=== PATIENT | female | born 1975 | race Caucasian/White ===

== ENCOUNTER → 2017-07-23 | Outpatient (CLI) | payer MEDICAID ==
[~2017-07-23] MED LIST: FLUTI110I INH; PREN1TAB20 PO; PRENCAP35 PO; VENTAER INH; ZANT150T2 PO; ZOFR8TAB PO; [UNRECOGNIZED DRUG - CODE] TOPICAL
== END ==
LOC: HPND 12:23
PROVIDERS: ATTEND Obstetrics & Gynecology
DX: O09.529 Supervision of elderly multigravida, unspecified trimester (principal); O34.219 Maternal care for unspecified type scar from previous cesarean delivery; O99.210 Obesity complicating pregnancy, unspecified trimester; E66.9 Obesity, unspecified
CPT/HCPCS: 76811

== ENCOUNTER → 2017-08-20 | Outpatient (CLI) | payer MEDICAID | LOC: HPND 12:51 | PROVIDERS: ATTEND Obstetrics & Gynecology | DX: O09.522 Supervision of elderly multigravida, second trimester (principal); O44.02 Complete placenta previa NOS or without hemorrhage, second trimester; O34.212 Maternal care for vertical scar from previous cesarean delivery | CPT/HCPCS: 76816 ==

== ENCOUNTER → 2017-09-18 | Outpatient (CLI) | payer MEDICAID | LOC: HPND 14:50 | PROVIDERS: ATTEND Obstetrics & Gynecology | DX: O09.522 Supervision of elderly multigravida, second trimester (principal); O44.02 Complete placenta previa NOS or without hemorrhage, second trimester | CPT/HCPCS: 76816 ==

== ENCOUNTER → 2017-10-16 | Outpatient (CLI) | payer MEDICAID ==
[~2017-10-16] MED LIST changes: +ALBUAER3 INH; +PRENMIS9 PO
== END ==
LOC: HPND 13:24
PROVIDERS: ATTEND Obstetrics & Gynecology
DX: O44.02 Complete placenta previa NOS or without hemorrhage, second trimester (principal); O09.522 Supervision of elderly multigravida, second trimester
CPT/HCPCS: 76816

== ENCOUNTER → 2017-11-14 | Outpatient (CLI) | payer MEDICAID ==
[~2017-11-14] MED LIST changes: +BETAMETHASONE SOD PHOS/ACETATE SUSP 30 MG/5 ML VIAL IM ONE; +DILA2TAB4 PO; +DIPH1GEL TOPICAL; +FERR325T18 PO; +IBUP-232 PO; +OXYC1TAB63 PO; +PERI PO; -PREN1TAB20 PO; -VENTAER INH
--- NOTE | 2017-11-14 18:48 | HHI.PR ---
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 She presents today for consultation. No LOF, VB, ctx. +FM. She has PNC at [facility]. is complicated by: -- AMA -- h/o CSx2 -- placenta previa (MRI 10/28/17 negative for accreta) -- h/o macrosomic G3 (9lb 14oz) -- desires permanent sterilization (family h/o ovarian cancer) OBHx: 1. 2. CS for NRFHTs 3. rCS, macrosomia 4. current PMH: asthma (no hospitalizations or intubations) PSH: CSx2 wisdom teeth extraction FH: paternal aunt from ovarian cancer SH: no T/E/Ds Meds: albuterol/inhaled steroids PRN PNVs Aller: amoxicillin (hives) PE: General: well developed, well nourished, no acute distress HEENT: normocephalic atraumatic, extraocular movements intact, neck supple Extremities: full range of motion Skin: normal coloration, no rashes, no suspicious skin lesions noted Neurologic: cranial nerves 2-12 grossly intact, normal muscle tone, normal gait Psychiatric: normal mood and affect, appropriate A/P: 42y/o @ 34.6wks with 1. h/o CSx2, complete previa -- negative MRI findings -- deliver at 36wks to avoid onset of labor -- T&C x4 units and set up for possible c-hyst 2. desires permanent sterilization -- counseled on irreversibility -- advised on SALPINGECTOMIES given famhx of ovarian cancer R/B/A of were discussed with the patient. We reviewed the rare but possible need for emergency hysterectomy if uncontrolled bleeding occurs. She was also counseled on the rare but possible need for a blood transfusion and the associated risks of allergic reaction, HIV (1:1M), and hepatitis (4:1M). She voiced understanding, all questions were answered. Scheduled for rCS/ salpingectomies on Friday, November 24, 2017 @ 10:[address] Strange. Pt given handout which was reviewed. Skinny Marion MD Nov 14, 2017 18:48
== END ==
LOC: HOBG 13:11
PROVIDERS: ATTEND Obstetrics & Gynecology
DX: O44.03 Complete placenta previa NOS or without hemorrhage, third trimester (principal); O99.513 Diseases of the respiratory system complicating pregnancy, third trimester; J45.909 Unspecified asthma, uncomplicated; Z80.41 Family history of malignant neoplasm of ovary; Z3A.34 34 weeks gestation of pregnancy
CPT/HCPCS: 96372; J0702

== ENCOUNTER → 2017-11-15 | Outpatient (CLI) | payer MEDICAID | LOC: HOBG 14:04 | PROVIDERS: ATTEND Obstetrics & Gynecology | DX: O44.03 Complete placenta previa NOS or without hemorrhage, third trimester (principal); O99.513 Diseases of the respiratory system complicating pregnancy, third trimester; J45.909 Unspecified asthma, uncomplicated; Z80.41 Family history of malignant neoplasm of ovary; Z3A.34 34 weeks gestation of pregnancy | CPT/HCPCS: 96372; J0702 ==

== ENCOUNTER 2017-11-24 08:02 | Inpatient (IN) | payer MEDICAID ==
[~2017-11-24] VITALS: Ht 160 cm; Wt 105.2 kg
[2017-11-24] VITALS (8 sets, daily range): BP systolic 91–103; BP diastolic 49–64; PULSE 68–92; RESP 15–18; TEMP 97.5–98.1; O2SAT 95–99
[~2017-11-24 08:02] MED LIST changes: -BETAMETHASONE SOD PHOS/ACETATE SUSP 30 MG/5 ML VIAL IM ONE; -DILA2TAB4 PO; -FERR325T18 PO; -IBUP-232 PO; -OXYC1TAB63 PO; -PERI PO
[2017-11-24] MEDS ORDERED: LACTATED RINGER'S 1000 ML INJ 1,000 ML IV ONE (09:00)
[2017-11-24] MEDS ORDERED: RESP: ALBUTEROL 2.5 MG/3 ML NEB (PRN) NEB (09:30)
[2017-11-24 09:31] LABS: AUTOMATED NEUTROPHIL # 5.9 TH/MM3 (1.8-7.7); BASOPHIL % 0.3 % (0.0-2.0); EOSINOPHIL # 0.1 TH/MM3 (0-0.4); EOSINOPHIL % 0.9 % (0.0-4.0); HEMATOCRIT 33.2 % (35.0-46.0); HEMOGLOBIN 11.4 GM/DL (11.6-15.3); LYMPH % 23.5 % (9.0-44.0); LYMPHOCYTE # 2.1 TH/MM3 (1.0-4.8); MEAN CELL VOLUME 91.7 FL (80.0-100.0); MEAN CORPUSCULAR HEMOGLOBIN 31.6 PG (27.0-34.0); MEAN CORPUSCULAR HGB CONC 34.5 % (32.0-36.0); MEAN PLATELET VOLUME 8.7 FL (7.0-11.0); MONO % 9.3 % (0.0-8.0); MONOCYTE # 0.8 TH/MM3 (0-0.9); PLATELET COUNT 211 TH/MM3 (150-450); RED BLOOD COUNT 3.61 MIL/MM3 (4.00-5.30); RED CELL DISTRIBUTION WIDTH 14.4 % (11.6-17.2); WHITE BLOOD COUNT 8.9 TH/MM3 (4.0-11.0)
--- NOTE | 2017-11-24 09:36 | HHI.HP ---
HPI Chief Complaint , scheduled Date Seen: Nov 24, 2017 Time Seen: 09:00 Travel History International Travel<30 Days: No Contact w/Intl Traveler<30Days: No Known Affected Area: No History of Present Illness HPI Patient is a 42-year-old at 36 weeks and 2 days who presents for a scheduled section. Patient received care at [facility]. Patient denies any complications during . Patient was found to have complete previa, monitored by OB diagnostics with monthly ultrasounds and MRI at 32 weeks. Patient received betamethasone 12mg IM 2 (November 14 and 2016 ). Patient denies vaginal bleeding, fluid leakage. She endorses [place] Littlejohn. She admits to positive movement. Patient admits to some lower extremity swelling but denies headaches and vision changes. Patient states that she has not had anything to drink or eat since before midnight. Imaging Last US reports reads: * Placenta is posterior and grade 2 and there is a complete central placenta previa covering the internal cervical os. MRI report to read: * Evaluation for placental invasion with MRI is typically ideally performed in the late second or early third trimester to better evaluate the myometrial placental interface. The patient is currently 32 weeks and myometrium is extremely thinned making confident exclusion of placental invasion challenging. * However, there are no features identified to indicate placental invasion. In particular the findings typically associated with placental invasion such as abnormal uterine contour bulge, abnormal dark intraplacental bands, and abnormally heterogeneous placenta are not visualized. * There is complete placenta previa. The placenta extends anterior to the internal cervical os near the location of the prior section. Weeks Gestation: 36 Para: 3 : 4 History Past Medical History Narrative Medical Asthma - occasional inhaler use; last use 4 month ago Plaque Psoriasis Obstetric History Obstetric History : 24 years ago, vaginal delivery G2: 7 years ago, induced delivery -> for failure to progress G3: 4 years ago, repeat Patient denies complications during previous pregnancies or deliveries. Past Surgical History Narrative Surgical 2 Family History Narrative Family History Patient denies family history of bleeding disorders. Social History Alcohol Use: No Tobacco Use: No Substance Abuse: No Allergies-Medications (Allergen,Severity, Reaction): Coded Allergies: amoxicillin (Verified Adverse Reaction, Severe, HIVES, 11/11/17) Home Meds Active Scripts Tce039/Iron/Folic/Om3 (Bal-Care Dha Essential Pack) 27 Mg Iron-1 Mg- 374 Mg Cmbpkgdrcp, 1 TAB PO DAILY, #30 BOTTLE 11 Refills Prov:Juana BaeP 10/16/17 Albuterol 8.5 GM Inh (Proair Hfa 8.5 GM Inh) 90 Mcg/Act Aer, 2 PUFF INH Q4-6H Y for SHORTNESS OF BREATH, #1 INHALER 6 Refills 108 mcg/actuation Prov:Juana BaeP 10/16/17 Ranitidine (Zantac) 150 Mg Tab, 150 MG PO BID for Reduce Stomach Acid, #60 TAB 11 Refills Prov:Juana BaeP 05/21/17 Reported Medications Fluticasone 12 GM Inh (Flovent Hfa 12 GM Inh) 110 Mcg/Act Inh, 1 PUFF INH BID for Asthma Management, #1 INHALER 0 Refills 02/06/17 Calcipotriene-Betamethasone Topical (Taclonex Topical) 0.005-0.064% Oint, 1 APPLIC TOPICAL DAILY for Psoriasis, #60 GM 0 Refills Apply to psoriasis daily x 4 weeks then 2x/week thereafter. 02/06/17 Discontinued Scripts Diphenhydramine Topical (Benadryl Itch Stopping Topical) 2 % Gel, 1 APPLIC TOPICAL Q4-6H Y for ITCHING AND/OR RASH, #1 TUBE 1 Refill Prov:Carrie France CNM [facility] 11/07/17 Without A Vit W/ Fe F (Provida Ob 20-20-1.25 mg) 1 Cap Cap, 1 TAB PO DAILY, #30 BOTTLE 11 Refills Prov:Juana BaeP 05/21/17 Ondansetron (Zofran) 8 Mg Tab, 8 MG PO TID for Nausea/Vomiting, #30 TAB 1 Refill Prov:Juana BaeP 05/06/17 Review of Systems Except as stated in HPI: all other systems reviewed are Neg Physical Exam Narrative GENERAL: Well-nourished, well-developed patient. SKIN: Warm and dry. HEAD: Normocephalic and atraumatic. EYES: No scleral icterus. No injection or drainage. ENT: No nasal drainage noted. Mucous membranes pink. Airway patent. NECK: Supple, trachea midline. No JVD. CARDIOVASCULAR: Regular rate and rhythm without murmurs, gallops, or rubs. RESPIRATORY: Breath sounds equal bilaterally. No accessory muscle use. BREASTS: Bilateral exam showed no masses , no retractions, no nipple discharge. ABDOMEN/GI: Abdomen soft, non-tender, bowel sounds present, no rebound, no guarding Gravid to 36 weeks size GENITOURINARY: Deferred. Uterine Contractions: irregular. FHT's: Category: 1 Baseline: 125 Reactive: positive Variability: moderate Decels: none EXTREMITIES: No cyanosis or edema. BACK: Nontender without obvious deformity. NEUROLOGICAL: Awake and alert. Motor and sensory grossly within normal limits. Five out of 5 muscle strength in all muscle groups. Normal speech. Caprini VTE Risk Assessment Caprini VTE Risk Assessment: No/Low Risk (score <= 1) Caprini Risk Assessment Model Point Value = 1 Point Value = 2 Point Value = 3 Point Value = 5 Age 41-60 Minor surgery BMI > 25 kg/m2 Swollen legs Varicose veins or History of unexplained or recurrent spontaneous Oral contraceptives or hormone replacement Sepsis (< 1 month) Serious lung disease, including pneumonia (< 1 month) Abnormal pulmonary function Acute myocardial infarction Congestive heart failure (< 1 month) History of inflammatory bowel disease Medical patient at bed rest Age 61-74 Arthroscopic surgery Major open surgery (> 45 min) Laparoscopic surgery (> 45 min) Malignancy Confined to bed (> 72 hours) Immobilizing plaster cast Central venous access Age >= 75 History of VTE Family history of VTE Factor V Leiden Prothrombin 00280G Lupus anticoagulant Anticardiolipin antibodies Elevated serum homocysteine Heparin-induced thrombocytopenia Other congenital or acquired thrombophilia Stroke (< 1 month) Elective arthroplasty Hip, pelvis, or leg fracture Acute spinal cord injury (< 1 month) Prophylaxis Regimen Total Risk Factor Score Risk Level Prophylaxis Regimen 0-1 Low Early ambulation 2 Moderate Order ONE of the following: *Sequential Compression Device (SCD) *Heparin 5000 units SQ BID 3-4 Higher Order ONE of the following medications: *Heparin 5000 units SQ TID *Enoxaparin/Lovenox 40 mg SQ daily (WT < 150 kg, CrCl > 30 mL/min) *Enoxaparin/Lovenox 30 mg SQ daily (WT < 150 kg, CrCl > 10-29 mL/min) *Enoxaparin/Lovenox 30 mg SQ BID (WT < 150 kg, CrCl > 30 mL/min) AND/OR *Sequential Compression Device (SCD) 5 or more Highest Order ONE of the following medications: *Heparin 5000 units SQ TID (Preferred with Epidurals) *Enoxaparin/Lovenox 40 mg SQ daily (WT < 150 kg, CrCl > 30 mL/min) *Enoxaparin/Lovenox 30 mg SQ daily (WT < 150 kg, CrCl > 10-29 mL/min) *Enoxaparin/Lovenox 30 mg SQ BID (WT < 150 kg, CrCl > 30 mL/min) AND *Sequential Compression Device (SCD) Data Data Vital Signs Reviewed: Yes Orders Orders Admit To Inpatient (11/24/17 ) Code Status (11/24/17 09:00) Vital Signs (Adult) .ON ADMISSION (11/24/17 09:00) Activity Oob Ad Sonia (11/24/17 09:00) Heart (11/24/17 09:00) Urinary Catheter Management CARLI.Q8H (11/24/17 09:00) ^ Preps (11/24/17 09:00) Scd / Arturo / Foot Pump CARLI.QSHIFT (11/24/17 09:00) ^ Ultrasound For Locatio (11/24/17 09:00) Diet Npo (11/24/17 Breakfast) Lactated Ringer's 1000 Ml Inj (Lr 1000 M (11/24/17 09:00) Lactated Ringer's 1000 Ml Inj (Lr 1000 M (11/24/17 09:30) Citric Acid-Sodium Citrate Liq (Bicitra (11/24/17 10:30) Type And Screen (11/24/17 09:00) Complete Blood Count With Diff (11/24/17 09:00) Urinalysis - C+S If Indicated (11/24/17 09:00) Drug Screen, Random Urine (11/24/17 09:00) Inpatient Certification (11/24/17 ) Specimen To Be Collected PRN (11/24/17 09:00) Specimen To Be Collected PRN (11/24/17 09:00) Clindamycin Inj (Cleocin Inj) (11/24/17 10:00) Gentamicin Inj (Gentamicin Inj) (11/24/17 09:00) Albuterol Neb (Albuterol Neb) (11/24/17 09:30) Group B Strep: Negative Labs Laboratory Tests Test 11/24/17 08:20 11/24/17 08:45 White Blood Count 8.9 Red Blood Count 3.61 Hemoglobin 11.4 Hematocrit 33.2 Mean Corpuscular Volume 91.7 Mean Corpuscular Hemoglobin 31.6 Mean Corpuscular Hemoglobin Concent 34.5 Red Cell Distribution Width 14.4 Platelet Count 211 Mean Platelet Volume 8.7 Neutrophils (%) (Auto) 66.0 Lymphocytes (%) (Auto) 23.5 Monocytes (%) (Auto) 9.3 Eosinophils (%) (Auto) 0.9 Basophils (%) (Auto) 0.3 Neutrophils # (Auto) 5.9 Lymphocytes # (Auto) 2.1 Monocytes # (Auto) 0.8 Eosinophils # (Auto) 0.1 Basophils # (Auto) 0.0 CBC Comment DIFF FINAL Differential Comment Assessment/Plan Assessment and Plan Patient is a 42-year-old at 36 weeks and 2 days who presents for a scheduled section. Patient received care at [facility]. Patient denies any complications during . Patient was found to have complete previa, monitored by OB diagnostics with multiple ultrasounds and MRI at 32 weeks. Patient denies vaginal bleeding, fluid leakage. She endorses [place]sh[place] Littlejohn. She admits to positive movement. * Admit for scheduled . * Activity OOB Ad Sonia. * Place urinary catheter. * SCDs/TEDs. Laboratory: * CBC * Type and screen * UA and culture * Drug screen Medications: * Clindamycin 900 mg IV once. * Gentamicin 500 mg IV once prior to . * Lactated Ringer's 1,000 ml at 150 mls/hr. * Albuterol Neb 2.5 mg q8hr PRN for shortness of breath. Rosangela Durbin MD R1 Nov 24, 2017 09:36
[2017-11-24 09:41] LABS: BACTERIA, URINE FEW /hpf; BILIRUBIN, URINE NEG (NEG); BLOOD, URINE TRACE (NEG); GLUCOSE,URINE NEG (NEG); KETONE, URINE NEG (NEG); MUCUS URINE FEW /lpf (OCC); NITRITE,URINE NEG (NEG); PH, URINE 6.5 (5.0-8.5); SQUAMOUS EPITHELIAL CELL URINE 6 /hpf (0-5); URINE COLOR YELLOW (YELLW/STRAW); URINE LEUKOCYTE ESTERASE NEG (NEG)
[2017-11-24] MEDS: LACTATED RINGER'S 1000 ML INJ 1,000 ML IV SCH (09:44)
[2017-11-24] MEDS ORDERED: CLINDAMYCIN INJ 900 MG in SODIUM CHLORIDE 0.9% INJ 100 ML IV SCH (10:00)
[2017-11-24] MEDS ORDERED: MORPHINE SULFATE PF 5 MG/10 ML VIAL ONE (10:13)
[2017-11-24] MEDS ORDERED: ACETAMINOPHEN 1000 MG/100 ML 100 ML IV ONE (10:13)
[2017-11-24] MEDS ORDERED: EPIDURAL-NO SYSTEMIC NARCOTICS PRN (10:20)
[2017-11-24] MEDS ORDERED: EPIDURAL-NALOXONE HCL 0.4 MG/ML AMP IV PUSH PRN (10:20)
[2017-11-24] MEDS ORDERED: EPIDURAL-DIPHENHYDRAMINE HCL 50 MG/ML VIAL IV PUSH PRN (10:20)
[2017-11-24] MEDS ORDERED: EPIDURAL-DIPHENHYDRAMINE HCL 50 MG CAP PO PRN (10:20)
[2017-11-24] MEDS ORDERED: EPIDURAL-DO NOT ADMINISTER ANTICOAGULANTS PRN (10:20)
[2017-11-24] MEDS ORDERED: CITRIC ACID-SODIUM CITRATE LIQ 30 ML UDC PO SCH (10:30)
[2017-11-24] MEDS ORDERED: GENTAMICIN INJ 500 MG in SODIUM CHLORIDE 0.9% INJ 100 ML IV ONE (11:00)
[2017-11-24] MEDS ORDERED: OXYTOCIN 10 UNIT/ML AMP ONE (11:26)
[2017-11-24] MEDS ORDERED: ONDANSETRON HCL 4 MG/2 ML VIAL IV PUSH PRN (12:00)
[2017-11-24] MEDS ORDERED: SODIUM CHLORIDE 0.9% FLUSH 10 ML FLUSH IV FLUSH PRN (12:00)
[2017-11-24] MEDS ORDERED: KETOROLAC TROMETHAMINE 60 MG/2 ML (IM) VIAL IM PRN ×3 (12:00→18:00)
[2017-11-24] MEDS ORDERED: ACETAMINOPHEN 325 MG TAB PO PRN (12:00)
[2017-11-24] MEDS ORDERED: OXYTOCIN 30 UNITS-500ML PREMIX 500 ML IV ONE (12:00)
[2017-11-24] MEDS ORDERED: oxyCODONE/ACETAMINOPHEN 5 MG/325 MG TAB PO PRN (12:00)
[2017-11-24] MEDS ORDERED: KETOROLAC TROMETHAMINE 30 MG/ML (IVP) VIAL IV PUSH PRN (12:15)
[2017-11-24] MEDS ORDERED: HYDROmorphone HCL PF 2 MG/ML VIAL ONE (12:45)
[2017-11-24] MEDS ORDERED: HYDROmorphone HCL PF 2 MG/ML VIAL IV ONE (13:30)
--- NOTE | 2017-11-24 13:30 | MP ---
cc: СВЕТЛАНА STRANGE MD, CARL DATE OF SURGERY 11/24/2017 PREOPERATIVE DIAGNOSIS Previous x2 at 36 weeks with complete placenta previa and desires permanent sterilization. POSTOPERATIVE DIAGNOSIS Previous x2 at 36 weeks with complete placenta previa and desires permanent sterilization. PROCEDURE PERFORMED Repeat low transverse section with bilateral tubal ligation. SURGEON Светлана Strange MD LOCOMOTIVE ELECTRICIAN Fox Russell MD, [facility] ANESTHESIA Spinal PREOPERATIVE NOTE The patient is a 42-year-old white female G4, P3 previous x2 with a documented complete previa on MRI and ultrasound and is recommended by maternal medicine to deliver between 36 and 37 weeks. She is now 36 weeks and two days. She recently received steroids in the form of betamethasone 12 mg IM on 11/14 and . The patient wants tubal ligation and understands the risks and benefits of that procedure. PROCEDURE The patient was taken to the operating room and placed in the supine position on the operating room table. Adequate spinal anesthesia was administerd. She was prepped and draped for abdominal surgery. A Pfannenstiel incision was made in the lower abdomen and carried through the fascia sharply. The fascia dissected off the rectus muscle and the rectus split in the midline. The peritoneal cavity entered sharply. The incision extended superiorly and inferiorly. A bladder blade placed in the lower edge of the incision and the visceral peritoneum reflected down off the lower uterine segment, and placed behind the bladder blade. On palpating the uterus, we noticed a window in the anterior uterine wall from previous surgeries. It was just peritoneum covering this avascular segment about the size of a golf ball in the lower uterine segment. When made our incision below that as a transverse hysterotomy extended bluntly bilaterally. A female was delivered at 10:42 a.m. weight 3330 grams, 7 pounds, 5.5 ounces and 's were 9 and 8. Cord blood obtained. Placenta manually extracted without difficulty. It easily from the lower uterine segment. It was a posterior mainly imbedded placenta that did cover the internal os and this was all taken out without difficulty and sent to pathology. The cervix was dilated with the ring forceps. The uterus cleaned of all remaining clots and amniotic membrane. The cephalad side of the incision was where the uterine window was and so we closed that and ran that with a 2-0 PDS suture in a running locking stitch to close up that window, bring that edge of the incision up to the uterine corpus and incorporate it together so that there was no window at that point. Then 0-chromic was then used to close the hysterotomy in a running locking fashion. There was a second layer imbricating 0-chromic without difficulty. Hemostasis achieved with a couple of stick ties on the incision line. The tubal was then done. The uterus was elevated and initially we had planned to take out both tubes, but the left fallopian tube was very close to the large vasculature in the mesosalpinx and those veins were very large and very close to the tube and so I felt it was to much risk to try and remove the whole tube due to the risk of increased bleeding, so a Lex tubal was done on that side. The tube was grasped with [place] and elevated and a suture of 0-plain using high that tube in a lasso fashion with a knuckle of tube above the knot and that knuckle was cut out and sent off to pathology. The opposite tube on the right, there was more room from the tube to the vasculature in the mesosalpinx and so a [place] tubal ligation was done on that side and a hemostat passed through the mesosalpinx and pulled two sutures through that window and the tube was tied fore and aft and an intervening segment excised out and sent to pathology. Hemostasis was achieved. The uterus was elevated and blood suctioned from the cul-de-sac and gutters. The uterus was replaced in the peritoneal cavity. The incision line was then covered with Interceed adhesive barrier and then the rectus muscle reapproximated with stick-ties of Vicryl and chromic. The fascia was then closed in a running layer of 0-Vicryl. Subcutaneous tissues were reapproximated with 3-0 plain suture in a running suture and the skin closed with 3-0 Monocryl subcuticular stitch. Pressure dressing applied. ESTIMATED BLOOD LOSS 500 cc There were no complications. Sponge and needle counts were correct x2 and the patient taken to recovery in stable condition. MD MACKENZIE Taylor/FABIENNE /12:20 PM /1:01 PM
[2017-11-24] MEDS: IBUPROFEN 600 MG TAB PO PRN ×2 (16:35→23:27)
[2017-11-24] MEDS ORDERED: LACTATED RINGER'S 1000 ML INJ 1,000 ML IV SCH (16:54)
[2017-11-24] MEDS: GENTAMICIN INJ 80 MG in SODIUM CHLORIDE 0.9% INJ 100 ML IV SCH (17:26)
[2017-11-24] MEDS: CLINDAMYCIN 900 MG/NS PREMIX 50 ML IV SCH (18:34)
[2017-11-24] MEDS ORDERED: OXYTOCIN 30 UNITS-500ML PREMIX 500 ML IV PRN (22:00)
[2017-11-25] MEDS: CLINDAMYCIN 900 MG/NS PREMIX 50 ML IV SCH ×3 (01:55→17:37)
[2017-11-25] MEDS: GENTAMICIN INJ 80 MG in SODIUM CHLORIDE 0.9% INJ 100 ML IV SCH ×3 (02:24→18:35)
[2017-11-25 03:45] VITALS: BP 98/57; PULSE 65; RESP 18; TEMP 98.2
[2017-11-25] MEDS: oxyCODONE/ACETAMINOPHEN 5 MG/325 MG TAB PO PRN ×4 (05:55→21:37)
[2017-11-25] MEDS: DOCUSATE SODIUM 50 MG/SENNA 8.6 MG TAB PO PRN ×2 (05:55→21:37)
[2017-11-25] MEDS: IBUPROFEN 600 MG TAB PO PRN ×3 (05:56→21:37)
[2017-11-25 08:15] VITALS: BP 81/50; PULSE 67; RESP 16; TEMP 98.5
[2017-11-25] MEDS: SODIUM CHLORIDE 0.9% FLUSH 10 ML FLUSH IV FLUSH SCH (09:00)
[2017-11-25 10:33] LABS: AUTOMATED NEUTROPHIL # 8.3 TH/MM3 (1.8-7.7); BASOPHIL % 0.2 % (0.0-2.0); EOSINOPHIL # 0.1 TH/MM3 (0-0.4); EOSINOPHIL % 0.6 % (0.0-4.0); HEMATOCRIT 24.9 % (35.0-46.0); HEMOGLOBIN 8.7 GM/DL (11.6-15.3); LYMPHOCYTE # 1.8 TH/MM3 (1.0-4.8); MEAN CELL VOLUME 92.2 FL (80.0-100.0); MEAN CORPUSCULAR HEMOGLOBIN 32.3 PG (27.0-34.0); MEAN CORPUSCULAR HGB CONC 35.1 % (32.0-36.0); MEAN PLATELET VOLUME 8.6 FL (7.0-11.0); MONO % 5.8 % (0.0-8.0); MONOCYTE # 0.6 TH/MM3 (0-0.9); NEUT % 76.4 % (16.0-70.0); PLATELET COUNT 174 TH/MM3 (150-450); RED CELL DISTRIBUTION WIDTH 14.2 % (11.6-17.2); WHITE BLOOD COUNT 10.9 TH/MM3 (4.0-11.0)
--- NOTE | 2017-11-25 12:07 | HHI.OB ---
Subjective Post Operative Day: 1 Remarks Ms. Smith is a 42 yo F who is POD 1 from CS 11/24. Afebrile with stable vital signs overnight. Patient has been doing well; her abdominal pain has been controlled. Patient does not report significant vaginal bleeding. No dysuria. Patient has been ambulating well. Patient does not think she has yet passed gas. No shortness of breath, chest pain, or leg swelling/pain. Objective Vitals/I&O Vital Signs Date Time Temp Pulse Resp B/P (MAP) Pulse Ox O2 Delivery O2 Flow Rate FiO2 11/25/17 08:15 81/50 (60) 11/25/17 08:15 98.5 67 16 11/25/17 03:45 65 18 98/57 (71) 11/25/17 03:45 98.2 11/24/17 23:45 79 18 98/55 (69) 11/24/17 23:45 98.1 11/24/17 19:45 103/64 (77) 11/24/17 19:45 97.7 82 18 11/24/17 18:16 68 16 97/58 (71) 11/24/17 18:16 97.6 95 11/24/17 13:45 97.5 15 95 11/24/17 13:45 82 91/60 (70) 11/24/17 12:45 97.8 11/24/17 12:45 79 16 101/59 (73) 98 11/24/17 12:30 92/50 (64) 11/24/17 12:30 79 16 99 11/24/17 12:15 85 16 96/50 (65) Result Diagram: 11/25/17 1018 Objective Remarks GENERAL: Well-nourished, well-developed patient. CARDIOVASCULAR: Regular rate and rhythm without murmurs, gallops, or rubs. RESPIRATORY: Breath sounds equal bilaterally. No accessory muscle use. ABDOMEN/GI: Abdomen soft, non-tender, bowel sounds present. Incision: Clean, dry and intact. Fundus: Firm, non-tender at umbilicus. GENITOURINARY: Light to moderate bleeding. EXTREMITIES: No cyanosis or edema, non-tender, without signs of DVT. Medications and IVs Current Medications Medications (Trade) Dose Ordered Sig/Amaury Route Start Time Stop Time Status Last Admin Lactated Ringer's 1,000 ml @ 150 mls/hr Q6H40M IV 11/24/17 09:30 11/24/17 09:44 (Bicitra Liq) 30 ml DEVELOPMENT COORDINATOR PO 11/24/17 10:30 11/28/17 10:29 11/24/17 09:44 (Albuterol Neb) 2.5 mg Q8HR NEB PRN NEB 11/24/17 09:30 Lactated Ringer's 1,000 ml @ 100 mls/hr Q10H IV 11/24/17 16:54 11/25/17 12:53 11/24/17 22:04 Oxytocin 500 ml @ 100 mls/hr UNSCH X1 PRN IV 11/24/17 22:00 11/25/17 21:59 (NS Flush) 2 ml BID IV FLUSH 11/24/17 21:00 (NS Flush) 2 ml UNSCH PRN IV FLUSH 11/24/17 12:00 (Tylenol) 650 mg Q6H PRN PO 11/24/17 12:00 (Motrin) 600 mg Q6H PRN PO 11/24/17 12:00 11/25/17 05:56 (Percocet 5-325 Mg) 1 tab Q4H PRN PO 11/24/17 12:00 11/24/17 23:26 (Percocet 5-325 Mg) 2 tab Q4H PRN PO 11/24/17 12:00 11/25/17 05:55 (Moon-Colace) 2 tab Q12H PRN PO 11/24/17 12:00 11/25/17 05:55 (M-M-R Ii Inj) 0.5 ml ONCE ONCE SQ 11/25/17 16:00 11/25/17 16:01 (Boostrix Inj) 0.5 ml ONCE ONCE IM 11/25/17 16:00 11/25/17 16:01 (Zofran Inj) 4 mg Q6H PRN IV PUSH 11/24/17 12:00 11/24/17 17:22 Gentamicin Sulfate 80 mg/ Sodium Chloride 102 ml @ 100 mls/hr Q8H IV 11/24/17 18:00 11/25/17 09:59 Clindamycin/ Sodium Chloride 50 ml @ 100 mls/hr Q8H IV 11/24/17 18:00 11/25/17 11:12 (Toradol Inj) 60 mg UNSCH X1 PRN IM 11/24/17 12:30 11/25/17 12:29 (Toradol Inj) 30 mg Q6H PRN IM 11/24/17 18:00 11/25/17 17:59 Assessment/Plan Problem List: (1) delivery delivered ICD Codes: O82 - Encounter for delivery without indication Assessment and Plan 42 y/o female who is POD1 s/p repeat CS for placenta previa -Continue routine care. -Percocet and Motrin PRN pain. -Encouraged OOB -Ambulating well -Voiding/stooling well -VSS Anemia Impression: Hgb preoperatively 11.4-> 8.7. No shortness of breath, dizziness, tachycardia, or other concerns for symptoms or decompensation -Will continue to monitor and will repeat CBC tomorrow Fox Brink MD, R3 Nov 25, 2017 12:07
[2017-11-25 13:15] VITALS: BP 91/51; PULSE 79
[2017-11-25] MEDS ORDERED: MEASLES, MUMPS, RUBELLA VACCINE 0.5 ML VIAL SQ ONE (16:00)
[2017-11-25] MEDS ORDERED: DIPHTH/TETANUS/ACEL PERTUSSIS (BOOSTER) 0.5 ML VIAL/PFS IM ONE (16:00)
[2017-11-25 16:45] VITALS: BP 102/64; PULSE 86; RESP 16; TEMP 98.3
[2017-11-25] MEDS: LACTATED RINGER'S 1000 ML INJ 1,000 ML IV SCH (18:48)
[2017-11-25 20:20] VITALS: BP 104/56; PULSE 74; RESP 18; TEMP 98.6; O2SAT 97
[2017-11-26] MEDS: CLINDAMYCIN 900 MG/NS PREMIX 50 ML IV SCH (02:07)
[2017-11-26] MEDS: GENTAMICIN INJ 80 MG in SODIUM CHLORIDE 0.9% INJ 100 ML IV SCH (02:07)
[2017-11-26] MEDS: IBUPROFEN 600 MG TAB PO PRN ×4 (03:37→21:24)
[2017-11-26] MEDS: oxyCODONE/ACETAMINOPHEN 5 MG/325 MG TAB PO PRN ×4 (03:37→20:11)
[2017-11-26 05:54] LABS: HEMATOCRIT 23.8 % (35.0-46.0); HEMOGLOBIN 8.3 GM/DL (11.6-15.3)
--- NOTE | 2017-11-26 07:30 | HHI.OB ---
Subjective Post Operative Day: 2 Remarks Ms. Smith is a 42 yo F who is POD 2 from repeat CS and bilateral tubal ligation . Afebrile with stable vital signs overnight. Patient has been doing well. Patient reports mild abdominal pain abdominal pain which is controlled. Patient reports that her vaginal bleeding has decreased; she is having pink discharge. Patient passing gas normally; no bowel movements. Normal urination. Patient has been ambulating well. No shortness of breath, chest pain, leg swelling/pain, or other concerns at this time. Objective Vitals/I&O Vital Signs Date Time Temp Pulse Resp B/P (MAP) Pulse Ox O2 Delivery O2 Flow Rate FiO2 11/25/17 20:20 98.6 74 18 104/56 (72) 97 11/25/17 16:45 98.3 11/25/17 16:45 86 16 102/64 (77) 11/25/17 13:15 79 91/51 (64) 11/25/17 08:15 81/50 (60) 11/25/17 08:15 98.5 67 16 Result Diagram: 11/26/17 0520 Objective Remarks GENERAL: Well-nourished, well-developed patient. CARDIOVASCULAR: Regular rate and rhythm without murmurs. Normal perfusion RESPIRATORY: CTAB, normal rate ABDOMEN/GI: Abdomen soft, non-tender, bowel sounds present. Incision: Dry, intact. Fundus: Firm, non-tender at umbilicus. GENITOURINARY: Light bleeding. EXTREMITIES: No cyanosis or edema, non-tender, without signs of DVT. Medications and IVs Current Medications Medications (Trade) Dose Ordered Sig/Amaury Route Start Time Stop Time Status Last Admin (Albuterol Neb) 2.5 mg Q8HR NEB PRN NEB 11/24/17 09:30 (NS Flush) 2 ml BID IV FLUSH 11/24/17 21:00 11/25/17 09:00 (NS Flush) 2 ml UNSCH PRN IV FLUSH 11/24/17 12:00 (Tylenol) 650 mg Q6H PRN PO 11/24/17 12:00 (Motrin) 600 mg Q6H PRN PO 11/24/17 12:00 11/26/17 03:37 (Percocet 5-325 Mg) 1 tab Q4H PRN PO 11/24/17 12:00 1/8/18 23:26 (Percocet 5-325 Mg) 2 tab Q4H PRN PO 11/24/17 12:00 11/26/17 03:37 (Moon-Colace) 2 tab Q12H PRN PO 11/24/17 12:00 11/25/17 21:37 (Zofran Inj) 4 mg Q6H PRN IV PUSH 11/24/17 12:00 11/24/17 17:22 Assessment/Plan Problem List: (1) delivery delivered ICD Codes: O82 - Encounter for delivery without indication Assessment and Plan 42 y/o female who is POD2 s/p repeat CS for placenta previa -Continue routine care. -Percocet and Motrin PRN pain -Continue Moon-colace; will await BM -Encouraged OOB -Ambulating well -Voiding/stooling well -VSS Anemia Impression: Hgb preoperatively 11.4-> 8.7 (POD1) -> 8.3 (POD2). No shortness of breath, dizziness, tachycardia, or other concerns for symptoms or decompensation. Suspect decrease in Hgb from POD 1 to POD 2 secondary to IVF; no concern for bleeding -IVF discontinued -Will continue to monitor VS and repeat Hgb tomorrow Fox Brink MD, R3 Nov 26, 2017 07:30
[2017-11-26 08:00] VITALS: BP 91/55; PULSE 82; RESP 18; TEMP 98
[2017-11-26] MEDS: DOCUSATE SODIUM 50 MG/SENNA 8.6 MG TAB PO PRN (15:24)
[2017-11-26] MEDS: SODIUM CHLORIDE 0.9% FLUSH 10 ML FLUSH IV FLUSH SCH (19:51)
[2017-11-26 20:09] VITALS: BP 107/60; PULSE 86; RESP 18; TEMP 98
[2017-11-26] MEDS ORDERED: MEPERIDINE HCL 50 MG/ML VIAL IM ONE (20:30)
[2017-11-27] MEDS: IBUPROFEN 600 MG TAB PO PRN ×2 (05:18→10:59)
[2017-11-27] MEDS: oxyCODONE/ACETAMINOPHEN 5 MG/325 MG TAB PO PRN (05:18)
[2017-11-27 06:00] LABS: AUTOMATED NEUTROPHIL # 5.3 TH/MM3 (1.8-7.7); BASOPHIL % 0.4 % (0.0-2.0); EOSINOPHIL # 0.1 TH/MM3 (0-0.4); HEMATOCRIT 23.3 % (35.0-46.0); LYMPH % 24.3 % (9.0-44.0); MEAN CELL VOLUME 92.4 FL (80.0-100.0); MEAN CORPUSCULAR HEMOGLOBIN 31.7 PG (27.0-34.0); MEAN CORPUSCULAR HGB CONC 34.3 % (32.0-36.0); MEAN PLATELET VOLUME 8.3 FL (7.0-11.0); MONO % 8.4 % (0.0-8.0); MONOCYTE # 0.7 TH/MM3 (0-0.9); NEUT % 65.9 % (16.0-70.0); PLATELET COUNT 190 TH/MM3 (150-450); RED BLOOD COUNT 2.52 MIL/MM3 (4.00-5.30); RED CELL DISTRIBUTION WIDTH 14.9 % (11.6-17.2); WHITE BLOOD COUNT 8.1 TH/MM3 (4.0-11.0)
--- NOTE | 2017-11-27 07:23 | HHI.OB ---
Subjective Post Operative Day: 3 Remarks Ms. Smith is a 42 yo F who is POD 2 from repeat CS and bilateral tubal ligation . Afebrile with stable vital signs overnight (BP has been consistent with patient' s prior BP with MAP in 60's). Patient has been doing well overall but reports that she had continued abdominal pain last night; patient was given Demerol x1 which relieved pain. Patient reports 5/10 abdominal pain today; she feels that Motrin and Percocet do not work well. Patient reports little to no vaginal bleeding. Patient reports that her vaginal bleeding has decreased. Patient passing gas normally; she has still not had a bowel movement. Normal urination. Patient has been ambulating well. No shortness of breath, chest pain, calf pain, or other concerns at this time. Patient feels that her milk is coming in well. Objective Vitals/I&O Vital Signs Date Time Temp Pulse Resp B/P (MAP) Pulse Ox O2 Delivery O2 Flow Rate FiO2 11/26/17 20:09 98.0 18 11/26/17 20:09 86 107/60 (76) 11/26/17 08:00 82 18 91/55 (67) 11/26/17 08:00 98.0 Result Diagram: 11/27/17 0510 Objective Remarks GENERAL: Well-nourished, well-developed patient. CARDIOVASCULAR: Regular rate and rhythm without murmurs. Normal perfusion RESPIRATORY: CTAB, normal rate ABDOMEN/GI: Abdomen soft, non-tender, bowel sounds present. Incision: Dry, intact. Wearing abdominal binder over incision Fundus: Firm, non-tender at umbilicus. GENITOURINARY: Light bleeding. EXTREMITIES: No cyanosis or edema, without signs of DVT. Medications and IVs Current Medications Medications (Trade) Dose Ordered Sig/Amaury Route Start Time Stop Time Status Last Admin (Albuterol Neb) 2.5 mg Q8HR NEB PRN NEB 11/24/17 09:30 (NS Flush) 2 ml BID IV FLUSH 11/24/17 21:00 11/25/17 09:00 (NS Flush) 2 ml UNSCH PRN IV FLUSH 11/24/17 12:00 (Tylenol) 650 mg Q6H PRN PO 11/24/17 12:00 (Motrin) 600 mg Q6H PRN PO 11/24/17 12:00 11/27/17 05:18 (Percocet 5-325 Mg) 1 tab Q4H PRN PO 11/24/17 12:00 11/24/17 23:26 (Percocet 5-325 Mg) 2 tab Q4H PRN PO 11/24/17 12:00 11/27/17 05:18 (Moon-Colace) 2 tab Q12H PRN PO 11/24/17 12:00 11/26/17 15:24 (Zofran Inj) 4 mg Q6H PRN IV PUSH 11/24/17 12:00 11/24/17 17:22 Assessment/Plan Problem List: (1) delivery delivered ICD Codes: O82 - Encounter for delivery without indication Status: Acute Assessment and Plan 42 y/o female who is POD3 s/p repeat CS for placenta previa -Continue routine care. -Percocet and Motrin PRN pain -Due to lack of effectiveness with Percocet, pain control changed to Dilaudid PO 2mg as needed -Passing gas but without BM -Continue Moon-colace -Encourage OOB -Ambulating well -Voiding/stooling well -VSS -S/P Tubal ligation Anemia Impression: Hgb preoperatively 11.4-> 8.7 (POD1) -> 8.3 (POD2) -> 8 (POD3). No shortness of breath, dizziness, tachycardia, or other concerns for symptoms or decompensation -Will discharge home on oral iron Seen with Dr. Bains and Fox Mejia MD, R3 Nov 27, 2017 07:23
[2017-11-27] MEDS ORDERED: IBUP-232 PO (07:28)
[2017-11-27] MEDS ORDERED: PERI PO (07:28)
[2017-11-27] MEDS ORDERED: OXYC1TAB63 PO (07:28)
--- NOTE | 2017-11-27 07:28 | HHI.DCPOC ---
Discharge Care Plan Diagnosis: (1) delivery delivered Report Symptoms to Your Doctor -Temperature above 100.5 degrees -Redness, of incision or excessive or foul smelling drainage -Unusual pain or calf pain -Increased vaginal bleeding -Painful or difficulty urinating -Feelings of extreme sadness or anxiety after 2 weeks Goals to Promote Your Health * To prevent worsening of your condition and complications * To maintain your health at the optimal level Directions to Meet Your Goals Take your medications as prescribed Follow your dietary instruction Follow activity as directed Ensure plenty of rest for recovery Drink fluids for hydration Keep your appointments as scheduled Take your immunizations and boosters as scheduled If your symptoms worsen call your PCP, if no PCP go to Urgent Care Center or Emergency Room Smoking is Dangerous to Your Health. Avoid second hand smoke Call the 24-hour crisis hotline for domestic abuse at Fox Brink MD, R3 Nov 27, 2017 07:28
[2017-11-27] MEDS ORDERED: FERR325T18 PO (07:29)
[2017-11-27 08:00] VITALS: BP 129/59; PULSE 76; RESP 18; TEMP 97.9
[2017-11-27] MEDS ORDERED: HYDROmorphone HCL 2 MG TAB PO PRN (09:15)
[2017-11-27] MEDS ORDERED: HYDROmorphone HCL 4 MG TAB PO PRN (09:15)
[2017-11-27] MEDS: DOCUSATE SODIUM 50 MG/SENNA 8.6 MG TAB PO PRN (10:59)
[2017-11-27] MEDS ORDERED: DILA2TAB4 PO (13:04)
== END 2017-11-27 14:16 | disposition home or self-care (01) | DRG 766 ==
LOC: H2EB 08:02 → H1EA 13:23
PROVIDERS: ADMIT Obstetrics & Gynecology Maternal & Fetal Medicine; ATTEND Obstetrics & Gynecology Maternal & Fetal Medicine
PROC: 10D00Z1 Extraction of Products of Conception, Low, Open Approach (ICD-10-PCS; principal; 2017-11-24)
PROC: 0UB70ZZ Excision of Bilateral Fallopian Tubes, Open Approach (ICD-10-PCS; 2017-11-24)
DX: O44.03 Complete placenta previa NOS or without hemorrhage, third trimester (principal); O34.219 Maternal care for unspecified type scar from previous cesarean delivery; O99.513 Diseases of the respiratory system complicating pregnancy, third trimester; J45.909 Unspecified asthma, uncomplicated; Z3A.36 36 weeks gestation of pregnancy; L40.0 Psoriasis vulgaris; Z30.2 Encounter for sterilization; O34.211 Maternal care for low transverse scar from previous cesarean delivery; Z37.0 Single live birth; O99.013 Anemia complicating pregnancy, third trimester
CPT/HCPCS: 80307; 81001; 85014; 85018; 85025; 86850; 86900; 86901; 86920; 88302; 90715; C1765; J0131; J1170; J1580; J2175; J2274; J2405; J2590; J7120